=== PATIENT | female | born 1955 | race Caucasian/White ===

== ENCOUNTER → 2016-08-06 | Outpatient (CLI) | payer MEDICAID ==
[~2016-08-06] MED LIST: KEFLEX 500MG.500 MG PO
--- NOTE | 2016-08-10 08:27 | RADIOLOGY REPORT PS360 ---
DIG MAMM-SCREEN [facility] W/CAD CAD Screening COMPARISON: Digital mammograms 03/23/2013 INDICATION: There is no personal or family history of breast cancer TECHNIQUE: Standard CC and MLO images were obtained. R2 CAD reviewed. FINDINGS: The breasts are composed almost entirely of fat with minimal scattered fibroglandular densities throughout each breast. There are stable benign-appearing density outer quadrant left breast at approximately the 3:00 position likely an intramammary node. There is faint arterial calcification right breast. There are multiple tiny calcifications in the axilla of both breast possibly secondary to deoderant in view of their distribution and the fact that there are not seen on the previous mammogram. There is no suspicious cluster of microcalcifications. IMPRESSION: Fatty type breast parenchyma with no suspicious lesion seen recommend yearly follow-up BI-RADS CATEGORY: 2_Benign RECOMMENDED FOLLOWUP: 12M 12 MONTH FOLLOW-UP (A letter has been sent to the patient regarding results of the study.)
== END ==
LOC: RAD 10:09
DX: Z12.31 Encounter for screening mammogram for malignant neoplasm of breast (principal)
CPT/HCPCS: G0202